=== PATIENT | male | born 1950 | race Caucasian/White ===

== ENCOUNTER 2019-10-06 15:29 | Emergency (ER) | payer OTHER ==
--- NOTE | 2019-10-06 15:34 | PDOC ---
Rapid Medical Evaluation Time Seen by Provider: 10/06/19 15:32 Medical Evaluation: 10/06/19 15:32 I have performed a brief in-person evaluation of this patient. The patient presents with a chief complaint of: ran out of alprazolam Pertinent physical exam findings:stable and in NAD, non-focal I have ordered the following: n/a The patient will proceed to the ED for further evaluation.
[2019-10-06 15:35] VITALS: BP 140/65; PULSE 100; TEMP 98; BMI 21.7
[2019-10-06] MEDS ORDERED: hydrOXYzine PAMOATE 50 MG CAPSULE (FP) PO ONE (16:14)
--- NOTE | 2019-10-06 16:25 | PDOC ---
History of Present Illness - General Chief Complaint: RX Refill Stated Complaint: DIZZY/NAUSEA Time Seen by Provider: 10/06/19 15:32 History Source: Patient Exam Limitations: No Limitations Past History - Past Medical History Allergies/Adverse Reactions: Allergies Allergy/AdvReac Type Severity Reaction Status Date / Time No Known Allergies Allergy Verified 10/06/19 15:35 Home Medications: Ambulatory Orders Alprazolam [Xanax] 0.5 mg PO Q6H PRN 10/06/19 hydrOXYzine PAMOATE [Vistaril -] 50 mg PO QID PRN #28 capsule 10/06/19 COPD: No Other medical history: METHADONE - Psycho Social/Smoking Cessation Hx Smoking History: Current every day smoker Number of Cigarettes Smoked Daily: 10 Information on smoking cessation initiated: No *Physical Exam - Vital Signs Last Vital Signs Temp Pulse Resp BP Pulse Ox 98 F 100 H 18 140/65 98 10/06/19 15:31 10/06/19 15:31 10/06/19 15:31 10/06/19 15:31 10/06/19 15:31 - Physical Exam General Appearance: No: Apparent Distress Respiratory/Chest: positive: Lungs Clear, Normal Breath Sounds. negative: Respiratory Distress Cardiovascular: positive: Regular Rhythm, Regular Rate, S1, S2. negative: Murmur Gastrointestinal/Abdominal: positive: Normal Bowel Sounds, Soft. negative: Tender, Distended, Guarding, Rebound Neurologic: positive: Alert, Normal Mood/Affect Medical Decision Making - Medical Decision Making 68 y/o M hx of anxiety, HTN, CVA 2003, substance abuse (on Methadone for >20 years) presents requesting refill for Xanax, which he ran out of 6 days ago. Patient states he was residing in [place] for the past 21 years and moved back to [place] around 2.5 months to live with his daughter. He last received refill from his PCP in [place], but ran out 6 days ago. Tried asking his PCP in [place] to refill the meds, but the PCP only gave him appointment for 10/26. Patient states he took his anxiety meds twice a day, daily. 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 Denies other complaints Unable to perform I-stop as [place] not listed as one of the states to search Patient has not seen psychiatrist and states his PCP was prescribing the meds Will refer to psychiatrist Given dose of Hydroxyzine for now 10/06/19 16:22 Discharge - Discharge Information Problems reviewed: Yes Clinical Impression/Diagnosis: Medication refill Condition: Stable Disposition: HOME - Admission No - Additional Discharge Information Prescriptions: hydrOXYzine PAMOATE [Vistaril -] 50 mg PO QID PRN #28 capsule PRN Reason: Anxiety Prescription Drug Monitoring Program (I-STOP) results: I-STOP not reviewed - Follow up/Referral Referrals: Michael Castillo MD [Staff Physician] - 2 Days Maine Hancock MD [Staff Physician] - 2 Days - Patient Discharge Instructions Patient Printed Discharge Instructions: DI for Anxiety -- Adult Additional Instructions: Thank you for choosing [facility]. It was a pleasure taking care of you. You were referred to psychiatrist and another doctor for further evaluation. You were prescribed Hydroxyzine to take as needed for anxiety. This medication can also make you drowsy so please be cautious with driving or performing heavy physical work. Return to the Emergency Department if your symptoms worsen or persist or have other concerning symptoms. - Post Discharge Activity
== END 2019-10-06 16:39 | disposition home or self-care (01) ==
LOC: JERFT 15:29
DX: F41.9 Anxiety disorder, unspecified (principal); Z76.0 Encounter for issue of repeat prescription; I10 Essential (primary) hypertension; F11.20 Opioid dependence, uncomplicated; Z86.73 Personal history of transient ischemic attack (TIA), and cerebral infarction without residual deficits; F17.210 Nicotine dependence, cigarettes, uncomplicated
CPT/HCPCS: 99281-25

== ENCOUNTER 2020-12-14 16:35 | Inpatient (IN) | payer BC, OTHER ==
[2020-12-14 16:50] VITALS: BMI 27.1
[2020-12-14] MEDS ORDERED: DEXTROSE 50%-WATER 25 GM/50 ML DISP.SYRIN ONE (16:59)
[2020-12-14 17:37] LABS: BASO % 0.5 % (0-2.0); HEMATOCRIT 32.7 % (35.4-49); HEMOGLOBIN 10.6 GM/dL (11.7-16.9); MCH 29.5 pg (25.7-33.7); MCHC 32.3 g/dl (32.0-35.9); MEAN CELL VOLUME 91.5 fl (80-96); MEAN PLT VOLUME 8.2 fl (7.5-11.1); MONO % 6.2 % (3.8-10.2); NEUT % 75.3 % (42.8-82.8); PLATELET COUNT 226 K/MM3 (134-434); RBC 3.57 M/mm3 (4.00-5.60); RDW 17.6 % (11.9-15.9); WHITE BLOOD COUNT 7.8 K/mm3 (4.0-10.0)
[2020-12-14 18:01] LABS: CHLORIDE 107 mmol/L (98-107); POTASSIUM 3.6 mmol/L (3.5-5.1); SODIUM 146 mmol/L (136-145)
[2020-12-14 18:03] LABS: CALCIUM 8.2 mg/dL (8.5-10.1)
[2020-12-14 18:04] LABS: ALBUMIN 2.6 g/dl (3.4-5.0); ANION GAP 10 MMOL/L (8-16); BLOOD UREA NITROGEN 47.2 mg/dL (7-18); CO2 29 mmol/L (21-32); GLUCOSE,RANDOM 163 mg/dL (74-106)
[2020-12-14 18:07] LABS: CREATININE 1.8 mg/dL (0.55-1.3); SGOT/AST 123 U/L (15-37); SGPT/ALT 55 U/L (13-61)
[2020-12-14 18:09] LABS: BILIRUBIN,TOTAL 0.9 mg/dL (0.2-1); TOT PROT 7.2 g/dl (6.4-8.2)
[2020-12-14 18:10] LABS: ALK PHOS 113 U/L (45-117)
[2020-12-14 18:13] LABS: ARTERIAL BLD GAS O2 SATURATION 80.1 mmHg (95-98); ARTERIAL BLOOD GAS BASE EXCESS 3.6 mmol/L (-2-2); ARTERIAL BLOOD GAS pH 7.392 (7.350-7.450)
[2020-12-14] MEDS ORDERED: SODIUM CHLORIDE 1,000 ML IV STA (18:23)
[2020-12-14 18:27] LABS: LDH 1254 U/L (87-246)
[2020-12-14] MEDS ORDERED: MAGNESIUM SULF 50% (8.12 MEQ/2 ML-1 GM VIAL) IVPB ONE (18:31)
[2020-12-14 18:36] LABS: INR 1.24 (0.83-1.09); PROTHROMBIN TIME (PATIENT) 14.9 SEC (9.7-13.0)
[2020-12-14 18:39] LABS: ACTIVATED PTT 26.3 SECONDS (25.2-36.5)
[2020-12-14] MEDS ORDERED: DOXYCYCLINE INJECTION 100 MG in DEXTROSE 5%-WATER - 100 ML IVPB ONE (18:39)
[2020-12-14] MEDS ORDERED: CEFTRIAXONE 1 GM in DEXTROSE 5%-WATER - 100 ML IVPB ONE (18:39)
[2020-12-14] MEDS ORDERED: CEFTRIAXONE 1 GM/50 ML BAG ONE (18:46)
[2020-12-14] MEDS ORDERED: DOXYCYCLINE HYCLATE 100 MG VIAL ONE (18:53)
[2020-12-14] MEDS ORDERED: ENOXAPARIN NA (PORCINE) 40 MG/0.4 ML DISP.SYRIN SQ ONE ×2 (21:10→21:35)
[2020-12-14] MEDS ORDERED: DEXAMETHASONE SOD PHOSPHATE 10 MG/1 ML VIAL IVPUSH ONE (21:11)
[2020-12-14] MEDS ORDERED: DEXAMETHASONE SOD PHOSPHATE 4 MG/1 ML VIAL ONE (21:35)
[2020-12-15 00:51] LABS: ARTERIAL BLD GAS O2 SATURATION 94.7 mmHg (95-98); ARTERIAL BLOOD GAS BASE EXCESS 4.6 mmol/L (-2-2); ARTERIAL BLOOD GAS PO2 74.2 mmHg (80-100); ARTERIAL BLOOD GAS pH 7.399 (7.350-7.450)
[2020-12-15 00:55] LABS: ALLENS TEST POSITIVE; VENT MODE S/T; VENT RATE 15
[2020-12-15] MEDS ORDERED: ELECTROLYTE-148 SOLN 1,000 ML IV SCH (03:00)
[2020-12-15 03:06] LABS: OPIATES, URI NEGATIVE ng/ml (CUTOFF=300); PHENCYCLIDINE,URINE NEGATIVE ng/ml (CUTOFF=25); URINE BARBITURATES NEGATIVE ng/ml (CUTOFF=200)
[2020-12-15 03:24] LABS: COCAINE, UR NEGATIVE ng/ml (CUTOFF=300); URINE AMPHETAMINES NEGATIVE ng/ml (CUTOFF=500)
[2020-12-15 03:26] LABS: METHADONE, UR POSITIVE ng/ml (CUTOFF=300); URINE BENZODIAZEPINES POSITIVE ng/ml (CUTOFF=200)
[2020-12-15] MEDS ORDERED: HEPARIN NA (PORCINE) 5,000 UNITS/ML 1ML VIAL SQ SCH (06:45)
[2020-12-15] MEDS ORDERED: DOXYCYCLINE INJECTION 100 MG in DEXTROSE 5%-WATER 100 ML IVPB SCH (07:00)
[2020-12-15 07:15] LABS: BASO % 0.2 % (0-2.0); HEMATOCRIT 31.2 % (35.4-49); HEMOGLOBIN 10.3 GM/dL (11.7-16.9); LYMPH % 10.2 % (8-40); MCH 29.2 pg (25.7-33.7); MCHC 32.9 g/dl (32.0-35.9); MEAN CELL VOLUME 88.6 fl (80-96); MONO % 3.9 % (3.8-10.2); NEUT % 85.7 % (42.8-82.8); PLATELET COUNT 157 K/MM3 (134-434); RBC 3.53 M/mm3 (4.00-5.60); RDW 16.9 % (11.9-15.9); WHITE BLOOD COUNT 7.6 K/mm3 (4.0-10.0)
[2020-12-15 07:25] LABS: INR 1.32 (0.83-1.09); PROTHROMBIN TIME (PATIENT) 15.8 SEC (9.7-13.0)
[2020-12-15 07:27] LABS: ACTIVATED PTT 28.9 SECONDS (25.2-36.5)
[2020-12-15 07:33] LABS: POTASSIUM 3.2 mmol/L (3.5-5.1)
[2020-12-15 07:37] LABS: ALBUMIN 2.2 g/dl (3.4-5.0); BLOOD UREA NITROGEN 54.2 mg/dL (7-18)
[2020-12-15 07:38] LABS: CALCIUM 7.8 mg/dL (8.5-10.1)
[2020-12-15 07:39] LABS: MAGNESIUM 2.8 mg/dL (1.8-2.4)
[2020-12-15 07:40] LABS: CREATININE 2.9 mg/dL (0.55-1.3); PHOSPHOROUS 1.4 mg/dL (2.5-4.9)
[2020-12-15 07:41] LABS: BILIRUBIN,TOTAL 1.3 mg/dL (0.2-1); TOT PROT 6.4 g/dl (6.4-8.2)
[2020-12-15] MEDS ORDERED: ACETAMINOPHEN 1000 MG/100 ML VIAL (NON FORMULARY) IVPB ONE ×2 (09:30→18:03)
[2020-12-15] MEDS ORDERED: CEFTRIAXONE 1 GM in DEXTROSE 5%-WATER - 50 ML IVPB ONE (10:00)
[2020-12-15] MEDS ORDERED: cefTRIAXone SODIUM 1 GM VIAL ONE (10:01)
[2020-12-15] MEDS ORDERED: DEXTROSE 5%-WATER - 50 ML IVPB ONE ×2 (10:01→20:31)
[2020-12-15] MEDS ORDERED: ASPIRIN 325 MG TABLET PO ONE (10:07)
[2020-12-15] MEDS ORDERED: HEPARIN NA (PORCINE) 5,000 UNITS/ML 1ML VIAL IVPUSH PRN (10:15)
[2020-12-15] MEDS ORDERED: HEPARIN NA (PORCINE) 5,000 UNITS/ML 1ML VIAL IVPUSH ONE (10:15)
[2020-12-15] MEDS ORDERED: SODIUM CHLORIDE 1,000 ML IV STA (10:47)
[2020-12-15] MEDS: CLOPIDOGREL BISULFATE 75 MG TABLET (FP) PO SCH (10:56)
[2020-12-15] MEDS: FAMOTIDINE 20 MG/50 ML IVPB 20 MG/50 ML MG IVPB SCH ×2 (10:56→22:27)
[2020-12-15] MEDS: DEXAMETHASONE SOD PHOSPHATE 4 MG/1 ML VIAL IVPUSH SCH (10:56)
[2020-12-15 11:02] LABS: ARTERIAL BLD GAS O2 SATURATION 86.3 mmHg (95-98); ARTERIAL BLOOD GAS BASE EXCESS 5.2 mmol/L (-2-2); ARTERIAL BLOOD GAS PO2 47.6 mmHg (80-100)
[2020-12-15 11:03] LABS: ALLENS TEST POSITIVE
[2020-12-15] MEDS: HEPARIN - 25,000 UNIT in SODIUM CHLORIDE 495 ML IV SCH (12:45)
[2020-12-15] MEDS ORDERED: SODIUM PHOSPHATE - 30 MM in DEXTROSE 5%-WATER - 500 ML IVPB ONE (13:30)
[2020-12-15] MEDS ORDERED: LORazepam 2 MG/ML SDV VIAL IVPUSH ONE ×2 (14:01→16:37)
[2020-12-15] MEDS: ASPIRIN 300 MG SUPP.RECT RC SCH (15:23)
[2020-12-15] MEDS: SODIUM CHLORIDE 1,000 ML IV SCH (15:23)
[2020-12-15] MEDS: KCL 10 MEQ IVPB 10 MEQ/100 ML INFUS.BAG IVPB SCH ×3 (15:23→18:36)
[2020-12-15 15:37] LABS: EPI CELLS >36 /uL (0-25.1); HYALINE CASTS 28 /uL (0-3.1); PH,URINE 5.5 (5.0-8.0); URINE APPEARANCE TURBID; URINE BACTERIA 12 /uL (0-1359); URINE BILIRUBIN NEGATIVE (NEGATIVE); URINE COLOR YELLOW; URINE GLUCOSE (UA) NEGATIVE (NEGATIVE); URINE KETONE NEGATIVE (NEGATIVE); URINE LEUK ESTERASE NEGATIVE (NEGATIVE); URINE NITRITE NEGATIVE (NEGATIVE); URINE PROTEIN 3+ (NEGATIVE); URINE RBC 15 /uL (0-23.9)
[2020-12-15] MEDS ORDERED: AZITHROMYCIN IVPB 500 MG/250 ML BAG IVPB SCH (17:30)
[2020-12-15] MEDS: FENTANYL IVPB 500 MCG/100 ML BAG IVPB SCH (18:00)
[2020-12-15] MEDS ORDERED: VANCOMYCIN 1,000 MG in DEXTROSE 5%-WATER - 250 ML IVPB ONE (18:03)
[2020-12-15] MEDS ORDERED: LACTATED RINGERS SOLUTION 1,000 ML with POTASSIUM CHLORIDE 20 MEQ IV ONE (18:16)
[2020-12-15] MEDS ORDERED: LACTATED RINGERS SOLUTION 1000 ML INFUS.BAG IV ONE (18:22)
[2020-12-15] MEDS: PROPOFOL 1,000,000 MCG/100 ML VIAL IVPB SCH (18:56)
[2020-12-15] MEDS ORDERED: VANCOMYCIN 1 GRAM (PRE-DOCKED) 1,000 MG/250 ML BAG IVPB ONE (18:57)
[2020-12-15] MEDS: VECURONIUM BROMIDE 100 MG/100 ML BAG IVPB SCH (19:06)
[2020-12-15] MEDS ORDERED: PIPERACILLIN/TAZOBACTAM 3.375 GM VIAL IVPB ONE (20:31)
[2020-12-15 20:58] LABS: URINE WBC 223.7 /uL (0-25.8)
[2020-12-15] MEDS ORDERED: SODIUM CHLORIDE 0.9% 500 ML INFUS.BAG IV ONE (21:36)
[2020-12-15 21:47] LABS: ARTERIAL BLD GAS O2 SATURATION 89.8 mmHg (95-98); ARTERIAL BLOOD GAS BASE EXCESS -5.2 mmol/L (-2-2); ARTERIAL BLOOD GAS PO2 88.6 mmHg (80-100)
[2020-12-15] MEDS: PIPERACILLIN/TAZOB 3.375 GM 3.375 GM in DEXTROSE 5%-WATER - 50 ML IVPB SCH (22:27)
[2020-12-15] MEDS: MUPIROCIN 2% TOPICAL OINTMENT FOR DECOLONIZATION NS SCH (22:27)
[2020-12-15] MEDS: CHLORHEXIDINE GLUCONATE 4% CLEANSER FOR DECOLONIZATION TP SCH (22:27)
[2020-12-15 23:17] LABS: ARTERIAL BLD GAS O2 SATURATION 91.2 mmHg (95-98); ARTERIAL BLOOD GAS PO2 89.2 mmHg (80-100)
[2020-12-15 23:19] LABS: ALLENS TEST POSITIVE; VENT MODE A/C; VENT RATE 18
[2020-12-15 23:23] LABS: ARTERIAL BLOOD GAS pH 7.023 (7.350-7.450)
[2020-12-16 01:36] LABS: MAGNESIUM 3.3 mg/dL (1.8-2.4)
[2020-12-16 02:02] LABS: N-TERMINAL BNP 97280.8 pg/ml (5-125)
[2020-12-16] MEDS ORDERED: PIPERACILLIN/TAZOBACTAM 3.375 GM VIAL IVPB ONE ×3 (02:58→16:18)
[2020-12-16] MEDS ORDERED: DEXTROSE 5%-WATER - 50 ML IVPB ONE ×3 (02:58→16:18)
[2020-12-16] MEDS ORDERED: INSULIN (NOVOLOG) ASPART 100 UNITS/ML 10ML VIAL ONE (02:59)
[2020-12-16] MEDS: PIPERACILLIN/TAZOB 3.375 GM 3.375 GM in DEXTROSE 5%-WATER - 50 ML IVPB SCH ×3 (03:20→17:02)
[2020-12-16] MEDS ORDERED: VANCOMYCIN 1 GRAM (PRE-DOCKED) 1 GM/200 ML BAG IVPB ONE (07:35)
[2020-12-16] MEDS ORDERED: AZITHROMYCIN IVPB 500 MG/250 ML BAG IVPB ONE (07:35)
[2020-12-16 07:40] LABS: HEMATOCRIT 29.8 % (35.4-49); HEMOGLOBIN 9.4 GM/dL (11.7-16.9); MCH 29.2 pg (25.7-33.7); MCHC 31.7 g/dl (32.0-35.9); MEAN CELL VOLUME 92.3 fl (80-96); MEAN PLT VOLUME 8.7 fl (7.5-11.1); PLATELET COUNT 173 K/MM3 (134-434); RBC 3.23 M/mm3 (4.00-5.60); RDW 18.6 % (11.9-15.9); WHITE BLOOD COUNT 14.7 K/mm3 (4.0-10.0)
[2020-12-16] MEDS: THIAMINE HCL 200 MG/2 ML VIAL IVPB SCH (07:48)
[2020-12-16 08:07] LABS: POTASSIUM 4.4 mmol/L (3.5-5.1)
[2020-12-16 08:10] LABS: CALCIUM 7.5 mg/dL (8.5-10.1)
[2020-12-16 08:11] LABS: ALBUMIN 1.9 g/dl (3.4-5.0); BLOOD UREA NITROGEN 78.6 mg/dL (7-18); MAGNESIUM 3.4 mg/dL (1.8-2.4)
[2020-12-16 08:14] LABS: CREATININE 5.1 mg/dL (0.55-1.3)
[2020-12-16 08:15] LABS: TOT PROT 7.1 g/dl (6.4-8.2)
[2020-12-16] MEDS ORDERED: NOREPINEPHRINE BITARTRATE 16,000 MCG in SODIUM CHLORIDE 484 ML IV SCH (09:00)
[2020-12-16] MEDS ORDERED: ASPIRIN 81 MG CHEWABLE TABLETS PO SCH (10:00)
[2020-12-16] MEDS ORDERED: FENTANYL NS IVPB 500 MCG/100 ML BAG IVPB ONE ×2 (10:06→15:17)
[2020-12-16] MEDS: FENTANYL IVPB 500 MCG/100 ML BAG IVPB SCH ×2 (10:12→15:29)
[2020-12-16] MEDS: MUPIROCIN 2% TOPICAL OINTMENT FOR DECOLONIZATION NS SCH ×2 (10:33→21:41)
[2020-12-16] MEDS: FAMOTIDINE 20 MG/50 ML IVPB 20 MG/50 ML MG IVPB SCH ×2 (10:33→21:41)
[2020-12-16] MEDS: ASPIRIN 300 MG SUPP.RECT RC SCH (11:07)
[2020-12-16] MEDS: DEXAMETHASONE SOD PHOSPHATE 4 MG/1 ML VIAL IVPUSH SCH (11:08)
[2020-12-16] MEDS: CLOPIDOGREL BISULFATE 75 MG TABLET (FP) PO SCH (11:20)
[2020-12-16 12:42] LABS: ARTERIAL BLD GAS O2 SATURATION 92.7 mmHg (95-98); ARTERIAL BLOOD GAS BASE EXCESS -5.6 mmol/L (-2-2); ARTERIAL BLOOD GAS PO2 84.7 mmHg (80-100)
[2020-12-16 12:44] LABS: VENT MODE V; VENT RATE 18
[2020-12-16 12:46] LABS: ARTERIAL BLOOD GAS pH 7.143 (7.350-7.450)
[2020-12-16] MEDS: PROPOFOL 1,000,000 MCG/100 ML VIAL IVPB SCH ×2 (13:00→21:43)
[2020-12-16] MEDS: SODIUM CHLORIDE 1,000 ML IV SCH (13:53)
[2020-12-16] MEDS: HEPARIN - 25,000 UNIT in SODIUM CHLORIDE 495 ML IV SCH (13:53)
[2020-12-16] MEDS: INSULIN SLIDING SCALE (NOVOLOG) 1 VIAL SQ SCH ×2 (16:52→23:00)
[2020-12-16] MEDS: CHLORHEXIDINE GLUCONATE 4% CLEANSER FOR DECOLONIZATION TP SCH (21:41)
[2020-12-16] MEDS: VECURONIUM BROMIDE 100 MG/100 ML BAG IVPB SCH (21:42)
[2020-12-16] MEDS ORDERED: NOREPINEPHRINE NS PREMIX 16,000 MCG/500 ML BAG IVPB SCH (23:35)
[2020-12-17] MEDS ORDERED: DEXTROSE 5%-WATER - 50 ML IVPB ONE ×3 (00:21→16:59)
[2020-12-17] MEDS ORDERED: PIPERACILLIN/TAZOBACTAM 2.25 GM VIAL IVPB ONE ×3 (00:21→16:58)
[2020-12-17] MEDS: THIAMINE HCL 200 MG/2 ML VIAL IVPB SCH ×3 (01:48→16:52)
[2020-12-17] MEDS: PIPERACILLIN/TAZOB 2.25 GM 2.25 GM in DEXTROSE 5%-WATER - 50 ML IVPB SCH ×3 (01:49→17:05)
[2020-12-17] MEDS ORDERED: PROPOFOL 1,000,000 MCG/100 ML VIAL ONE (02:13)
[2020-12-17] MEDS ORDERED: FENTANYL NS IVPB 500 MCG/100 ML BAG IVPB ONE ×4 (02:13→12:29)
[2020-12-17 06:02] LABS: ARTERIAL BLD GAS O2 SATURATION 94.2 mmHg (95-98); ARTERIAL BLOOD GAS BASE EXCESS -6.5 mmol/L (-2-2); ARTERIAL BLOOD GAS PO2 83.9 mmHg (80-100); ARTERIAL BLOOD GAS pH 7.222 (7.350-7.450)
[2020-12-17 06:03] LABS: ALLENS TEST POSITIVE
[2020-12-17 06:04] LABS: VENT MODE A/C; VENT RATE 22
[2020-12-17] MEDS: FENTANYL NS IVPB 500 MCG/100 ML BAG IVPB SCH (07:25)
[2020-12-17 07:33] LABS: HEMATOCRIT 26.8 % (35.4-49); HEMOGLOBIN 8.7 GM/dL (11.7-16.9); MCH 29.5 pg (25.7-33.7); MCHC 32.6 g/dl (32.0-35.9); MEAN CELL VOLUME 90.6 fl (80-96); MEAN PLT VOLUME 9.4 fl (7.5-11.1); PLATELET COUNT 149 K/MM3 (134-434); RBC 2.96 M/mm3 (4.00-5.60); RDW 18.8 % (11.9-15.9); WHITE BLOOD COUNT 15.6 K/mm3 (4.0-10.0)
[2020-12-17] MEDS: INSULIN SLIDING SCALE (NOVOLOG) 1 VIAL SQ SCH ×4 (07:37→22:31)
[2020-12-17 07:45] LABS: POTASSIUM 4.3 mmol/L (3.5-5.1)
[2020-12-17 07:48] LABS: ALBUMIN 1.8 g/dl (3.4-5.0); BLOOD UREA NITROGEN 95.8 mg/dL (7-18); MAGNESIUM 3.1 mg/dL (1.8-2.4)
[2020-12-17 07:51] LABS: PHOSPHOROUS 6.5 mg/dL (2.5-4.9)
[2020-12-17 07:52] LABS: BILIRUBIN,TOTAL 0.6 mg/dL (0.2-1); TOT PROT 5.9 g/dl (6.4-8.2)
[2020-12-17] MEDS: DEXAMETHASONE SOD PHOSPHATE 4 MG/1 ML VIAL IVPUSH SCH (09:10)
[2020-12-17] MEDS: MUPIROCIN 2% TOPICAL OINTMENT FOR DECOLONIZATION NS SCH ×2 (09:10→22:31)
[2020-12-17] MEDS: FAMOTIDINE 20 MG/50 ML IVPB 20 MG/50 ML MG IVPB SCH ×2 (09:10→22:31)
[2020-12-17] MEDS ORDERED: PT OWN MED DRAWER 7, Y5N ONE (09:11)
[2020-12-17] MEDS: CLOPIDOGREL BISULFATE 75 MG TABLET (FP) PO SCH (09:11)
[2020-12-17] MEDS: AZITHROMYCIN IVPB 500 MG/250 ML BAG IVPB SCH (09:13)
[2020-12-17 10:38] LABS: CALCIUM 6.4 mg/dL (8.5-10.1)
[2020-12-17] MEDS: ASPIRIN 300 MG SUPP.RECT RC SCH (11:31)
[2020-12-17] MEDS: HEPARIN - 25,000 UNIT in SODIUM CHLORIDE 495 ML IV SCH ×2 (11:32→16:54)
[2020-12-17] MEDS ORDERED: SODIUM CHLORIDE 250 ML IV STA (11:54)
[2020-12-17] MEDS ORDERED: SODIUM CHLORIDE 1,000 ML IV STA (12:47)
[2020-12-17] MEDS: ARTIFICIAL TEARS (POLYVINYL ALCOHOL) OPTH DROPS OU SCH ×2 (14:17→22:31)
[2020-12-17] MEDS: SODIUM CHLORIDE 1,000 ML IV SCH ×2 (14:18→16:55)
[2020-12-17] MEDS: VECURONIUM BROMIDE 100 MG/100 ML BAG IVPB SCH (18:11)
[2020-12-17] MEDS: PROPOFOL 1,000,000 MCG/100 ML VIAL IVPB SCH (18:12)
[2020-12-17] MEDS: CHLORHEXIDINE GLUCONATE 4% CLEANSER FOR DECOLONIZATION TP SCH (22:31)
[2020-12-18] MEDS: THIAMINE HCL 200 MG/2 ML VIAL IVPB SCH ×2 (00:25→09:15)
[2020-12-18] MEDS: PIPERACILLIN/TAZOB 2.25 GM 2.25 GM in DEXTROSE 5%-WATER - 50 ML IVPB SCH ×3 (02:00→17:00)
[2020-12-18] MEDS ORDERED: DEXTROSE 50%-WATER 25 GM/50 ML DISP.SYRIN ONE (06:36)
[2020-12-18] MEDS ORDERED: DEXTROSE 50%-WATER - 25 GM/50 ML VIAL IVPUSH ONE (06:37)
[2020-12-18] MEDS ORDERED: DEXTROSE 50%-WATER - 25 GM/50 ML VIAL IVPUSH PRN (06:37)
[2020-12-18] MEDS: INSULIN SLIDING SCALE (NOVOLOG) 1 VIAL SQ SCH ×3 (07:05→17:06)
[2020-12-18 07:08] LABS: HEMATOCRIT 24.3 % (35.4-49); HEMOGLOBIN 7.9 GM/dL (11.7-16.9); MCH 29.8 pg (25.7-33.7); MCHC 32.6 g/dl (32.0-35.9); MEAN CELL VOLUME 91.2 fl (80-96); MEAN PLT VOLUME 10.2 fl (7.5-11.1); PLATELET COUNT 157 K/MM3 (134-434); RBC 2.67 M/mm3 (4.00-5.60); RDW 18.3 % (11.9-15.9); WHITE BLOOD COUNT 15.6 K/mm3 (4.0-10.0)
[2020-12-18 07:29] LABS: POTASSIUM 5.2 mmol/L (3.5-5.1)
[2020-12-18 07:34] LABS: ALBUMIN 1.8 g/dl (3.4-5.0); MAGNESIUM 2.9 mg/dL (1.8-2.4)
[2020-12-18 07:36] LABS: CREATININE 6.9 mg/dL (0.55-1.3); PHOSPHOROUS 8.3 mg/dL (2.5-4.9)
[2020-12-18 07:38] LABS: BILIRUBIN,TOTAL 0.8 mg/dL (0.2-1); TOT PROT 5.9 g/dl (6.4-8.2)
[2020-12-18 08:01] LABS: BLOOD UREA NITROGEN 108.6 mg/dL (7-18)
[2020-12-18] MEDS ORDERED: SODIUM CHLORIDE 250 ML IV PRN (08:52)
[2020-12-18] MEDS ORDERED: DEXTROSE 5%-WATER - 50 ML IVPB ONE ×3 (09:08→23:19)
[2020-12-18] MEDS ORDERED: PIPERACILLIN/TAZOBACTAM 2.25 GM VIAL IVPB ONE ×3 (09:08→23:19)
[2020-12-18] MEDS: DEXAMETHASONE SOD PHOSPHATE 4 MG/1 ML VIAL IVPUSH SCH (09:16)
[2020-12-18] MEDS: ASPIRIN 300 MG SUPP.RECT RC SCH (09:16)
[2020-12-18] MEDS: MUPIROCIN 2% TOPICAL OINTMENT FOR DECOLONIZATION NS SCH (09:16)
[2020-12-18] MEDS: CLOPIDOGREL BISULFATE 75 MG TABLET (FP) PO SCH (09:20)
[2020-12-18] MEDS: FAMOTIDINE 20 MG/50 ML IVPB 20 MG/50 ML MG IVPB SCH (09:20)
[2020-12-18] MEDS: AZITHROMYCIN IVPB 500 MG/250 ML BAG IVPB SCH (09:20)
[2020-12-18] MEDS: ARTIFICIAL TEARS (POLYVINYL ALCOHOL) OPTH DROPS OU SCH (09:29)
[2020-12-18] MEDS: HEPARIN NA (PORCINE) 5,000 UNITS/ML 1ML VIAL IVPUSH PRN ×2 (09:31→16:54)
[2020-12-18] MEDS: HEPARIN - 25,000 UNIT in SODIUM CHLORIDE 495 ML IV SCH (12:55)
[2020-12-18] MEDS: SODIUM CHLORIDE 1,000 ML IV SCH (15:12)
[2020-12-18] MEDS: FENTANYL NS IVPB 500 MCG/100 ML BAG IVPB SCH (16:13)
[2020-12-18] MEDS: ALBUMIN HUMAN 25% 12.5 GM/50 ML VIAL IVPB SCH ×3 (17:11→17:13)
[2020-12-18] MEDS: PROPOFOL 1,000,000 MCG/100 ML VIAL IVPB SCH (18:41)
[2020-12-18] MEDS: VECURONIUM BROMIDE 100 MG/100 ML BAG IVPB SCH (18:41)
[2020-12-19] MEDS: FAMOTIDINE 20 MG/50 ML IVPB 20 MG/50 ML MG IVPB SCH ×3 (00:01→23:55)
[2020-12-19] MEDS: PIPERACILLIN/TAZOB 2.25 GM 2.25 GM in DEXTROSE 5%-WATER - 50 ML IVPB SCH ×3 (01:51→18:55)
[2020-12-19 06:14] LABS: ARTERIAL BLD GAS O2 SATURATION 92.7 mmHg (95-98); ARTERIAL BLOOD GAS BASE EXCESS -8.8 mmol/L (-2-2); ARTERIAL BLOOD GAS PO2 84.6 mmHg (80-100)
[2020-12-19 06:15] LABS: ALLENS TEST POSITIVE; VENT MODE A/C; VENT RATE 26
[2020-12-19 06:33] LABS: ARTERIAL BLOOD GAS pH 7.132 (7.350-7.450)
[2020-12-19] MEDS: INSULIN SLIDING SCALE (NOVOLOG) 1 VIAL SQ SCH ×5 (06:40→23:56)
[2020-12-19 07:03] LABS: HEMATOCRIT 20.6 % (35.4-49); MCH 30.5 pg (25.7-33.7); MCHC 33.8 g/dl (32.0-35.9); MEAN PLT VOLUME 9.9 fl (7.5-11.1); PLATELET COUNT 151 K/MM3 (134-434); RBC 2.29 M/mm3 (4.00-5.60); WHITE BLOOD COUNT 15.2 K/mm3 (4.0-10.0)
[2020-12-19] MEDS ORDERED: SODIUM CHLORIDE 250 ML IV PRN (07:37)
[2020-12-19] MEDS: ALBUMIN HUMAN 25% 12.5 GM/50 ML VIAL IVPB SCH ×4 (08:45→10:22)
[2020-12-19] MEDS ORDERED: NOREPINEPHRINE BITARTRATE 8,000 MCG/500 ML BAG IVPB SCH (09:00)
[2020-12-19] MEDS ORDERED: PIPERACILLIN/TAZOBACTAM 2.25 GM VIAL IVPB ONE ×2 (10:04→18:53)
[2020-12-19] MEDS ORDERED: DEXTROSE 5%-WATER - 50 ML IVPB ONE ×2 (10:04→18:54)
[2020-12-19] MEDS: DEXAMETHASONE SOD PHOSPHATE 4 MG/1 ML VIAL IVPUSH SCH (10:15)
[2020-12-19] MEDS: ARTIFICIAL TEARS (POLYVINYL ALCOHOL) OPTH DROPS OU SCH ×3 (10:17→23:54)
[2020-12-19] MEDS: ASPIRIN 300 MG SUPP.RECT RC SCH (10:17)
[2020-12-19] MEDS: MUPIROCIN 2% TOPICAL OINTMENT FOR DECOLONIZATION NS SCH ×3 (10:17→23:55)
[2020-12-19] MEDS: HEPARIN - 25,000 UNIT in SODIUM CHLORIDE 495 ML IV SCH (10:18)
[2020-12-19] MEDS: CLOPIDOGREL BISULFATE 75 MG TABLET (FP) PO SCH (10:18)
[2020-12-19 10:27] LABS: POTASSIUM 5.1 mmol/L (3.5-5.1)
[2020-12-19 10:32] LABS: ALBUMIN 1.8 g/dl (3.4-5.0); BLOOD UREA NITROGEN 89.9 mg/dL (7-18)
[2020-12-19 10:34] LABS: CREATININE 5.8 mg/dL (0.55-1.3); MAGNESIUM 2.8 mg/dL (1.8-2.4); TOT PROT 5.6 g/dl (6.4-8.2)
[2020-12-19 10:36] LABS: PHOSPHOROUS 8.8 mg/dL (2.5-4.9)
[2020-12-19] MEDS: AZITHROMYCIN IVPB 500 MG/250 ML BAG IVPB SCH (10:46)
[2020-12-19] MEDS ORDERED: DEXTROSE 50%-WATER 25 GM/50 ML DISP.SYRIN ONE (11:01)
[2020-12-19] MEDS ORDERED: DEXTROSE 50%-WATER - 25 GM/50 ML VIAL IVPUSH ONE (11:02)
[2020-12-19 11:12] LABS: CALCIUM 6.3 mg/dL (8.5-10.1)
[2020-12-19] MEDS ORDERED: CALCIUM GLUCONATE 10% - 1,000 MG/10 ML VIAL IVPB ONE (12:00)
[2020-12-19] MEDS: FENTANYL NS IVPB 500 MCG/100 ML BAG IVPB SCH (14:34)
[2020-12-19] MEDS ORDERED: ACETAMINOPHEN 1000 MG/100 ML VIAL (NON FORMULARY) IVPB PRN (15:07)
[2020-12-19] MEDS: SODIUM CHLORIDE 1,000 ML IV SCH (16:33)
[2020-12-19] MEDS: FUROSEMIDE 100 MG/10 ML INJECTABLE VIAL IVPB SCH (17:50)
[2020-12-19] MEDS: VECURONIUM BROMIDE 100 MG/100 ML BAG IVPB SCH (18:00)
[2020-12-19] MEDS: PROPOFOL 1,000,000 MCG/100 ML VIAL IVPB SCH (18:02)
[2020-12-19] MEDS: SEVELAMER CARBONATE 0.8 GM POWDER PACKET NGT SCH (18:12)
[2020-12-19] MEDS: NOREPINEPHRINE BITARTRATE 16,000 MCG in SODIUM CHLORIDE 484 ML IV SCH (23:54)
[2020-12-19] MEDS: CHLORHEXIDINE GLUCONATE 4% CLEANSER FOR DECOLONIZATION TP SCH ×2 (23:55)
[2020-12-20] MEDS ORDERED: DEXTROSE 5%-WATER - 50 ML IVPB ONE ×3 (00:40→17:47)
[2020-12-20] MEDS ORDERED: PIPERACILLIN/TAZOBACTAM 2.25 GM VIAL IVPB ONE ×3 (00:40→17:47)
[2020-12-20] MEDS: PIPERACILLIN/TAZOB 2.25 GM 2.25 GM in DEXTROSE 5%-WATER - 50 ML IVPB SCH ×3 (04:11→17:55)
[2020-12-20] MEDS: SEVELAMER CARBONATE 0.8 GM POWDER PACKET NGT SCH ×3 (04:11→17:56)
[2020-12-20] MEDS: INSULIN SLIDING SCALE (NOVOLOG) 1 VIAL SQ SCH ×4 (06:17→22:55)
[2020-12-20 06:26] LABS: ARTERIAL BLD GAS O2 SATURATION 92.5 mmHg (95-98); ARTERIAL BLOOD GAS BASE EXCESS -5.3 mmol/L (-2-2); ARTERIAL BLOOD GAS PO2 84.2 mmHg (80-100)
[2020-12-20 06:27] LABS: ALLENS TEST POSITIVE; VENT MODE A/C
[2020-12-20 06:28] LABS: VENT RATE 26
[2020-12-20 06:29] LABS: ARTERIAL BLOOD GAS pH 7.137 (7.350-7.450)
[2020-12-20 07:40] LABS: HEMATOCRIT 21.2 % (35.4-49); HEMOGLOBIN 7.4 GM/dL (11.7-16.9); MCH 30.8 pg (25.7-33.7); MCHC 34.7 g/dl (32.0-35.9); MEAN CELL VOLUME 88.6 fl (80-96); MEAN PLT VOLUME 10.2 fl (7.5-11.1); PLATELET COUNT 139 K/MM3 (134-434); RBC 2.39 M/mm3 (4.00-5.60); RDW 17.5 % (11.9-15.9)
[2020-12-20 09:07] LABS: ALBUMIN 2.2 g/dl (3.4-5.0); BILIRUBIN,TOTAL 1.3 mg/dL (0.2-1); BLOOD UREA NITROGEN 72.3 mg/dL (7-18); MAGNESIUM 2.6 mg/dL (1.8-2.4); POTASSIUM 4.7 mmol/L (3.5-5.1); TOT PROT 5.9 g/dl (6.4-8.2)
[2020-12-20 09:17] LABS: PHOSPHOROUS 8.2 mg/dL (2.5-4.9)
[2020-12-20 09:18] LABS: CALCIUM 6.2 mg/dL (8.5-10.1)
[2020-12-20] MEDS: FUROSEMIDE 100 MG/10 ML INJECTABLE VIAL IVPB SCH (09:40)
[2020-12-20] MEDS: DEXAMETHASONE SOD PHOSPHATE 4 MG/1 ML VIAL IVPUSH SCH (09:41)
[2020-12-20] MEDS: FAMOTIDINE 20 MG/50 ML IVPB 20 MG/50 ML MG IVPB SCH ×2 (09:42→22:24)
[2020-12-20] MEDS: ASPIRIN 300 MG SUPP.RECT RC SCH (09:42)
[2020-12-20] MEDS: CLOPIDOGREL BISULFATE 75 MG TABLET (FP) PO SCH (09:42)
[2020-12-20] MEDS: ARTIFICIAL TEARS (POLYVINYL ALCOHOL) OPTH DROPS OU SCH ×2 (10:12→22:24)
[2020-12-20] MEDS: AZITHROMYCIN IVPB 500 MG/250 ML BAG IVPB SCH (10:12)
[2020-12-20] MEDS: MUPIROCIN 2% TOPICAL OINTMENT FOR DECOLONIZATION NS SCH (10:25)
[2020-12-20] MEDS: FENTANYL NS IVPB 500 MCG/100 ML BAG IVPB SCH ×3 (10:26→23:00)
[2020-12-20 10:48] LABS: WHITE BLOOD COUNT 20.3 K/mm3 (4.0-10.0)
[2020-12-20] MEDS ORDERED: SODIUM CHLORIDE 250 ML IV PRN (12:04)
[2020-12-20] MEDS: HEPARIN - 25,000 UNIT in SODIUM CHLORIDE 495 ML IV SCH ×2 (12:11→16:09)
[2020-12-20] MEDS: SODIUM BICARBONATE 8.4% 50 MEQ/50 ML VIAL IVPUSH SCH ×3 (12:46→21:01)
[2020-12-20] MEDS: AMINO ACIDS/PROTEIN HYDROLYS 30 ML LIQUID.PKT PO SCH (17:56)
[2020-12-20] MEDS: ACETAMINOPHEN 1000 MG/100 ML VIAL (NON FORMULARY) IVPB PRN (18:00)
[2020-12-20] MEDS: VECURONIUM BROMIDE 100 MG/100 ML BAG IVPB SCH (18:44)
[2020-12-20] MEDS: PROPOFOL 1,000,000 MCG/100 ML VIAL IVPB SCH ×2 (18:44→23:00)
[2020-12-20] MEDS: NOREPINEPHRINE BITARTRATE 16,000 MCG in SODIUM CHLORIDE 484 ML IV SCH (20:59)
[2020-12-20] MEDS: HEPARIN NA (PORCINE) 5,000 UNITS/ML 1ML VIAL IVPUSH PRN (21:01)
[2020-12-20] MEDS: CHLORHEXIDINE GLUCONATE 4% CLEANSER FOR DECOLONIZATION TP SCH (22:24)
[2020-12-21] MEDS: SEVELAMER CARBONATE 0.8 GM POWDER PACKET NGT SCH ×3 (00:33→17:35)
[2020-12-21] MEDS ORDERED: DEXTROSE 5%-WATER - 50 ML IVPB ONE ×3 (02:30→16:53)
[2020-12-21] MEDS ORDERED: PIPERACILLIN/TAZOBACTAM 2.25 GM VIAL IVPB ONE ×3 (02:30→16:53)
[2020-12-21] MEDS: PIPERACILLIN/TAZOB 2.25 GM 2.25 GM in DEXTROSE 5%-WATER - 50 ML IVPB SCH ×3 (02:35→17:35)
[2020-12-21] MEDS: SODIUM BICARBONATE 8.4% 50 MEQ/50 ML VIAL IVPUSH SCH ×4 (02:35→21:12)
[2020-12-21] MEDS: PROPOFOL 1,000,000 MCG/100 ML VIAL IVPB SCH ×2 (03:00→21:11)
[2020-12-21] MEDS: ACETAMINOPHEN 1000 MG/100 ML VIAL (NON FORMULARY) IVPB PRN ×3 (03:47→22:16)
[2020-12-21] MEDS: FENTANYL NS IVPB 500 MCG/100 ML BAG IVPB SCH ×2 (04:00→21:11)
[2020-12-21] MEDS ORDERED: VASOPRESSIN 20 UNITS/ML VIAL IV ONE (05:09)
[2020-12-21] MEDS: VASOPRESSIN 40 UNITS in SODIUM CHLORIDE 98 ML IVPB SCH (05:17)
[2020-12-21 05:55] LABS: ARTERIAL BLD GAS O2 SATURATION 88.8 mmHg (95-98); ARTERIAL BLOOD GAS BASE EXCESS -7.8 mmol/L (-2-2); ARTERIAL BLOOD GAS PO2 71.7 mmHg (80-100)
[2020-12-21 06:05] LABS: ALLENS TEST POSITIVE; VENT MODE A/C; VENT RATE 26
[2020-12-21 06:08] LABS: HEP B CORE AB, TOT Positive (Negative)
[2020-12-21 06:14] LABS: ARTERIAL BLOOD GAS pH 7.143 (7.350-7.450)
[2020-12-21] MEDS: INSULIN SLIDING SCALE (NOVOLOG) 1 VIAL SQ SCH ×4 (06:28→21:37)
[2020-12-21 07:37] LABS: BASO % 0.2 % (0-2.0); LYMPH % 4.9 % (8-40); MCH 31.5 pg (25.7-33.7); MCHC 35.8 g/dl (32.0-35.9); MEAN CELL VOLUME 88.2 fl (80-96); MEAN PLT VOLUME 10.1 fl (7.5-11.1); MONO % 3.8 % (3.8-10.2); NEUT % 91.1 % (42.8-82.8); PLATELET COUNT 171 K/MM3 (134-434); RBC 2.15 M/mm3 (4.00-5.60); RDW 18.3 % (11.9-15.9); WHITE BLOOD COUNT 20.6 K/mm3 (4.0-10.0)
[2020-12-21 07:58] LABS: HEMOGLOBIN 6.8 GM/dL (11.7-16.9)
[2020-12-21] MEDS ORDERED: ALBUMIN HUMAN 25% 12.5 GM/50 ML VIAL IVPB SCH (08:00)
[2020-12-21] MEDS: AMINO ACIDS/PROTEIN HYDROLYS 30 ML LIQUID.PKT PO SCH ×2 (08:10→17:35)
[2020-12-21 08:30] LABS: MAGNESIUM 2.7 mg/dL (1.8-2.4)
[2020-12-21 09:38] LABS: ANISOCYTOSIS 0; MACROCYTOSIS 0; PLATELET ESTIMATE NORMAL
[2020-12-21] MEDS: CLOPIDOGREL BISULFATE 75 MG TABLET (FP) PO SCH (10:10)
[2020-12-21] MEDS: ASPIRIN 300 MG SUPP.RECT RC SCH (10:10)
[2020-12-21] MEDS: ARTIFICIAL TEARS (POLYVINYL ALCOHOL) OPTH DROPS OU SCH ×2 (10:20→21:12)
[2020-12-21] MEDS: HEPARIN - 25,000 UNIT in SODIUM CHLORIDE 495 ML IV SCH (10:21)
[2020-12-21] MEDS: FAMOTIDINE 20 MG/50 ML IVPB 20 MG/50 ML MG IVPB SCH ×2 (11:27→21:12)
[2020-12-21] MEDS: DEXAMETHASONE SOD PHOSPHATE 4 MG/1 ML VIAL IVPUSH SCH (11:27)
[2020-12-21] MEDS: FUROSEMIDE 100 MG/10 ML INJECTABLE VIAL IVPB SCH (11:27)
[2020-12-21] MEDS: AZITHROMYCIN IVPB 500 MG/250 ML BAG IVPB SCH (11:27)
[2020-12-21 12:39] LABS: POTASSIUM 5.2 mmol/L (3.5-5.1)
[2020-12-21 12:41] LABS: ALBUMIN 1.7 g/dl (3.4-5.0)
[2020-12-21 12:42] LABS: BLOOD UREA NITROGEN 92.5 mg/dL (7-18)
[2020-12-21 12:45] LABS: CREATININE 5.9 mg/dL (0.55-1.3)
[2020-12-21 12:46] LABS: TOT PROT 5.3 g/dl (6.4-8.2)
[2020-12-21 12:52] LABS: CALCIUM 5.9 mg/dL (8.5-10.1)
[2020-12-21 14:08] LABS: BLOOD UREA NITROGEN 51.2 mg/dL (7-18); CREATININE 3.5 mg/dL (0.55-1.3); POTASSIUM 3.9 mmol/L (3.5-5.1)
[2020-12-21 14:12] LABS: CALCIUM 6.6 mg/dL (8.5-10.1)
[2020-12-21] MEDS ORDERED: CALCIUM GLUCONATE 10% - 1,000 MG/10 ML VIAL IVPUSH ONE (17:54)
[2020-12-21] MEDS ORDERED: PHENYLEPHRINE NS PREMIX 10,000 MCG/100 ML BAG CVP SCH (21:00)
[2020-12-21] MEDS: VECURONIUM BROMIDE 100 MG/100 ML BAG IVPB SCH (21:11)
[2020-12-21] MEDS: NOREPINEPHRINE BITARTRATE 16,000 MCG in SODIUM CHLORIDE 484 ML IV SCH (21:11)
[2020-12-21] MEDS: CHLORHEXIDINE GLUCONATE 4% CLEANSER FOR DECOLONIZATION TP SCH (21:12)
[2020-12-21] MEDS: PHENYLEPHRINE NS PREMIX 50,000 MCG/500 ML BAG CVP SCH (23:00)
[2020-12-22] MEDS ORDERED: PIPERACILLIN/TAZOBACTAM 2.25 GM VIAL IVPB ONE ×3 (01:27→17:22)
[2020-12-22] MEDS ORDERED: DEXTROSE 5%-WATER - 50 ML IVPB ONE ×3 (01:28→17:22)
[2020-12-22] MEDS: SEVELAMER CARBONATE 0.8 GM POWDER PACKET NGT SCH ×3 (01:32→17:26)
[2020-12-22] MEDS: PIPERACILLIN/TAZOB 2.25 GM 2.25 GM in DEXTROSE 5%-WATER - 50 ML IVPB SCH ×3 (01:32→17:25)
[2020-12-22] MEDS: SODIUM BICARBONATE 8.4% 50 MEQ/50 ML VIAL IVPUSH SCH ×4 (02:01→21:25)
[2020-12-22] MEDS: PROPOFOL 1,000,000 MCG/100 ML VIAL IVPB SCH ×3 (03:00→17:35)
[2020-12-22] MEDS: FENTANYL NS IVPB 500 MCG/100 ML BAG IVPB SCH ×4 (03:00→16:28)
[2020-12-22] MEDS: VASOPRESSIN 40 UNITS in SODIUM CHLORIDE 98 ML IVPB SCH (05:45)
[2020-12-22] MEDS: INSULIN SLIDING SCALE (NOVOLOG) 1 VIAL SQ SCH ×4 (06:20→22:29)
[2020-12-22 06:29] LABS: ARTERIAL BLD GAS O2 SATURATION 55.1 mmHg (95-98); ARTERIAL BLOOD GAS BASE EXCESS -5.5 mmol/L (-2-2); ARTERIAL BLOOD GAS PO2 40.5 mmHg (80-100)
[2020-12-22 06:31] LABS: ALLENS TEST POSITIVE; VENT MODE A/C; VENT RATE 26
[2020-12-22 06:33] LABS: ARTERIAL BLOOD GAS pH 7.085 (7.350-7.450)
[2020-12-22 06:55] LABS: BASO % 0.2 % (0-2.0); HEMATOCRIT 21.4 % (35.4-49); HEMOGLOBIN 7.7 GM/dL (11.7-16.9); LYMPH % 13.1 % (8-40); MCH 31.2 pg (25.7-33.7); MEAN CELL VOLUME 86.7 fl (80-96); MEAN PLT VOLUME 10.2 fl (7.5-11.1); MONO % 4.3 % (3.8-10.2); NEUT % 82.4 % (42.8-82.8); PLATELET COUNT 222 K/MM3 (134-434)
[2020-12-22 07:06] LABS: INR 1.18 (0.83-1.09); PROTHROMBIN TIME (PATIENT) 14.4 SEC (9.7-13.0)
[2020-12-22 07:08] LABS: ACTIVATED PTT 43.9 SECONDS (25.2-36.5)
[2020-12-22 07:14] LABS: POTASSIUM 4.3 mmol/L (3.5-5.1)
[2020-12-22 07:20] LABS: ALBUMIN 1.4 g/dl (3.4-5.0); BLOOD UREA NITROGEN 72.6 mg/dL (7-18)
[2020-12-22] MEDS ORDERED: PT OWN MED DRAWER 7, Y5N ONE ×2 (07:20→13:01)
[2020-12-22 07:21] LABS: MAGNESIUM 2.4 mg/dL (1.8-2.4)
[2020-12-22 07:24] LABS: BILIRUBIN,TOTAL 0.9 mg/dL (0.2-1); CREATININE 4.5 mg/dL (0.55-1.3); TOT PROT 5.2 g/dl (6.4-8.2)
[2020-12-22] MEDS: HEPARIN - 25,000 UNIT in SODIUM CHLORIDE 495 ML IV SCH (07:40)
[2020-12-22] MEDS: HEPARIN NA (PORCINE) 5,000 UNITS/ML 1ML VIAL IVPUSH PRN (07:46)
[2020-12-22] MEDS: NOREPINEPHRINE BITARTRATE 16,000 MCG in SODIUM CHLORIDE 484 ML IV SCH ×2 (07:53→21:27)
[2020-12-22] MEDS: PHENYLEPHRINE NS PREMIX 50,000 MCG/500 ML BAG CVP SCH ×2 (07:54→17:35)
[2020-12-22] MEDS ORDERED: FENTANYL NS IVPB 500 MCG/100 ML BAG IVPB ONE ×2 (08:23→13:03)
[2020-12-22] MEDS ORDERED: OCULAR LUBRICANT OPHTHALMIC OINTMENT 7 GM TUBE OD PRN (08:36)
[2020-12-22 09:17] LABS: PHOSPHOROUS 9.8 mg/dL (2.5-4.9)
[2020-12-22] MEDS: FUROSEMIDE 100 MG/10 ML INJECTABLE VIAL IVPB SCH (09:38)
[2020-12-22] MEDS: DEXAMETHASONE SOD PHOSPHATE 4 MG/1 ML VIAL IVPUSH SCH (09:42)
[2020-12-22] MEDS: CLOPIDOGREL BISULFATE 75 MG TABLET (FP) PO SCH (09:43)
[2020-12-22] MEDS: AMINO ACIDS/PROTEIN HYDROLYS 30 ML LIQUID.PKT PO SCH ×2 (09:43→17:25)
[2020-12-22] MEDS: ARTIFICIAL TEARS (POLYVINYL ALCOHOL) OPTH DROPS OU SCH (09:45)
[2020-12-22] MEDS ORDERED: DEXTROSE 50%-WATER 25 GM/50 ML DISP.SYRIN ONE (09:49)
[2020-12-22] MEDS: FAMOTIDINE 20 MG/50 ML IVPB 20 MG/50 ML MG IVPB SCH ×2 (09:57→21:26)
[2020-12-22] MEDS: AZITHROMYCIN IVPB 500 MG/250 ML BAG IVPB SCH (09:59)
[2020-12-22] MEDS: ASPIRIN 300 MG SUPP.RECT RC SCH (11:00)
[2020-12-22 12:07] LABS: RBC 2.47 M/mm3 (4.00-5.60); WHITE BLOOD COUNT 21.6 K/mm3 (4.0-10.0)
[2020-12-22 12:08] LABS: CORRECTED WBC 19.29 K/mm3
[2020-12-22 12:09] LABS: ANISOCYTOSIS 1+; MACROCYTOSIS 1+
[2020-12-22] MEDS: CHLORHEXIDINE GLUCONATE 4% CLEANSER FOR DECOLONIZATION TP SCH (21:26)
[2020-12-22] MEDS ORDERED: DEXTROSE 50%-WATER - 25 GM/50 ML VIAL ONE (21:39)
[2020-12-22] MEDS: VECURONIUM BROMIDE 100 MG/100 ML BAG IVPB SCH (22:06)
[2020-12-23] MEDS: PROPOFOL 1,000,000 MCG/100 ML VIAL IVPB SCH (00:21)
[2020-12-23] MEDS: VASOPRESSIN 40 UNITS in SODIUM CHLORIDE 98 ML IVPB SCH (00:25)
[2020-12-23] MEDS ORDERED: ATROPINE SULFATE 1 MG/10 ML DISP.SYRIN ONE (01:35)
[2020-12-23 02:10] VITALS: BP 71/42; PULSE 38; TEMP 96
== END 2020-12-23 02:23 | disposition expired | DRG 207 ==
LOC: JER 16:35 → JERBED 18:58 → J4W 23:29 → JICU 12-15 18:45
PROVIDERS: ADMIT Internal Medicine; ATTEND Internal Medicine Pulmonary Disease
PROC: 5A1955Z Respiratory Ventilation, Greater than 96 Consecutive Hours (ICD-10-PCS; 2020-12-15)
PROC: 0CHY7BZ Insertion of Airway into Mouth and Throat, Via Natural or Artificial Opening (ICD-10-PCS; 2020-12-15)
PROC: 05HM33Z Insertion of Infusion Device into Right Internal Jugular Vein, Percutaneous Approach (ICD-10-PCS; principal; 2020-12-16)
PROC: B513ZZA Fluoroscopy of Right Jugular Veins, Guidance (ICD-10-PCS; 2020-12-16)
PROC: HZ91ZZZ Pharmacotherapy for Substance Abuse Treatment, Methadone Maintenance (ICD-10-PCS; 2020-12-17)
PROC: 05HN33Z Insertion of Infusion Device into Left Internal Jugular Vein, Percutaneous Approach (ICD-10-PCS; 2020-12-18)
PROC: B544ZZA Ultrasonography of Left Jugular Veins, Guidance (ICD-10-PCS; 2020-12-18)
PROC: 5A1D70Z Performance of Urinary Filtration, Intermittent, Less than 6 Hours Per Day (ICD-10-PCS; 2020-12-18)
PROC: 5A1D70Z Performance of Urinary Filtration, Intermittent, Less than 6 Hours Per Day (ICD-10-PCS; 2020-12-19)
PROC: 5A1D70Z Performance of Urinary Filtration, Intermittent, Less than 6 Hours Per Day (ICD-10-PCS; 2020-12-21)
PROC: 5A12012 Performance of Cardiac Output, Single, Manual (ICD-10-PCS; 2020-12-23)
DX: U07.1 COVID-19 (principal); J96.01 Acute respiratory failure with hypoxia; J12.82 Pneumonia due to coronavirus disease 2019; I21.4 Non-ST elevation (NSTEMI) myocardial infarction; G93.41 Metabolic encephalopathy; N17.0 Acute kidney failure with tubular necrosis; R65.21 Severe sepsis with septic shock; A41.9 Sepsis, unspecified organism; J96.02 Acute respiratory failure with hypercapnia; N17.9 Acute kidney failure, unspecified; I69.354 Hemiplegia and hemiparesis following cerebral infarction affecting left non-dominant side; F11.20 Opioid dependence, uncomplicated; E87.0 Hyperosmolality and hypernatremia; E46 Unspecified protein-calorie malnutrition; E87.2 Acidosis; R41.82 Altered mental status, unspecified; R00.0 Tachycardia, unspecified; I10 Essential (primary) hypertension; E83.39 Other disorders of phosphorus metabolism; E83.41 Hypermagnesemia; I46.9 Cardiac arrest, cause unspecified; Z68.33 Body mass index [BMI] 33.0-33.9, adult; D64.9 Anemia, unspecified; R77.8 Other specified abnormalities of plasma proteins; E16.2 Hypoglycemia, unspecified
CPT/HCPCS: 31500; 36415; 36430; 36600; 70450-TC; 71045-TC-FY; 72125-TC; 80048; 80053; 80061; 80178; 80307; 81003; 82140; 82272; 82565; 82607; 82728; 82746; 82803; 82962; 83036; 83540; 83550; 83605; 83615; 83721; 83735; 83880; 84100; 84156; 84300; 84443; 84484; 85025; 85027; 85379; 85610; 85730; 86140; 86704; 86706; 86707; 86708; 86709; 86769; 86780; 86803; 86850; 86900; 86901; 86922; 87040; 87086; 87205; 87340; 87804; 93005; 93010; 93306-TC; 93970-TC; 94002; 94660; 99285-25; C9803; J0131; J1100; J1644; P9047; P9058; U0003